=== PATIENT | female | born 1985 | race African-American/Black ===

== ENCOUNTER 2017-09-04 22:32 | Emergency (ER) | payer OTHER, MEDICAID ==
[2017-09-04 22:38] VITALS: RESP 16
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
[2017-09-05 03:34] VITALS: BP 116/72; PULSE 74; TEMP 98.1; O2SAT 97
== END 2017-09-05 03:35 | disposition home or self-care (01) ==
DX: S16.9XXA Unspecified injury of muscle, fascia and tendon at neck level, initial encounter (principal); V87.7XXA Person injured in collision between other specified motor vehicles (traffic), initial encounter; Y93.89 Activity, other specified
CPT/HCPCS: L0174

== ENCOUNTER 2018-05-12 04:31 | Emergency (ER) | payer MEDICAID ==
[2018-05-12] MEDS ORDERED: LIDOCAINE HCL 4% TOPICAL SOLN 50ML ONE (04:44)
--- NOTE | 2018-05-12 04:54 | EDPHY ---
H & P Stated Complaint: R EAR PAIN, AFTER CLEANING IT Time Seen by Provider: 05/12/18 04:35 HPI/ROS: Chief Complaint: Right ear pain HPI: 32-year-old woman presenting complaining of right ear pain. She states she has had pain for the last couple days. She has been itching her ears with Q -tips. She did get a cotton stocking her ear yesterday was seen at [facility] and had removed. Her ear was itching again today so she put in another Q -tips agent. The cotton came off again. She has had increasing pain. No fevers or chills. ROS: 10 point Review of Systems is negative except as noted in the HPI. Social History: No smoking, no alcohol, no recreational drug use Family History: non-contributory Physical Exam: General: Awake, alert, no acute distress HEENT: Right ear: There is cotton stuck deep with inner ear canal. Once this is removed there is moderate amount of erythema and exudate in her ear canal. The TM appears normal. Left ear normal Skin: No rash - Personal History LMP (Females 10-55): Over 28 Days Ago Current Tetanus Diphtheria and Acellular Pertussis (TDAP): Yes Tetanus Vaccine Date: <10YRS - Medical/Surgical History Hx Asthma: No Hx Chronic Respiratory Disease: No Hx Diabetes: No Hx Cardiac Disease: No Hx Renal Disease: No Hx Cirrhosis: No Hx Alcoholism: No Hx HIV/AIDS: No Hx Splenectomy or Spleen Trauma: No Other PMH: Csec - Social History Smoking Status: Never smoked Constitutional: Initial Vital Signs Temperature (C) 36.7 C 05/12/18 04:33 Heart Rate 80 05/12/18 04:33 Respiratory Rate 16 05/12/18 04:33 Blood Pressure 106/80 05/12/18 04:33 O2 Sat (%) 98 05/12/18 04:33 O2 Delivery Mode Room Air Allergies/Adverse Reactions: grape Allergy (Verified 05/05/18 17:12) Home Medications: Medication Instructions Recorded NK [No Known Home Meds] 05/05/18 Medical Decision Making Procedures: Procedure: Foreign body removal from right ear. Anesthesia: None required After verbal consent was obtained, the caught in was removed from right ear canal. The foreign body was removed manually with forceps under direct visualization. There were no complications. The procedure was performed by myself. ED Course/Re-evaluation: 32-year-old woman with a mild early otitis externa secondary to multiple caught in walks being stuck in her ear. Will start her on topical antibiotic solution , follow up with primary care. I have counseled her to not put any objects in her ears in the future. - Data Points Medications Given: Discontinued Medications Ciprofloxacin/Hydrocortisone (Cipro Hc) 3 drops RTEAR EDNOW ONE Stop: 05/12/18 05:16 Last Admin: 05/12/18 05:31 Dose: 3 drops Departure - Departure Disposition: Home, Routine, Self-Care Clinical Impression: Otitis externa, Foreign body in ear Condition: Good Instructions: Otitis Externa (ED), Ear Foreign Body (ED) Additional Instructions: Please do not put any objects in your ear. The only thing you should put in your ear are liquids. Administer 3 drops of the ear drops into you're right ear twice a day for 7 days. Follow up with primary care physician in 3-4 days for further evaluation. Referrals: Elvia Amador MD [Primary Care Provider] - As per Instructions
[2018-05-12] MEDS ORDERED: CIPROFLOXACIN HC 10 ML OTIC DROPS RTEAR ONE (05:15)
[2018-05-12 05:30] VITALS: BP 111/84
[2018-05-12] MEDS ORDERED: CIPROFLOXACIN HC 10 ML OTIC DROPS RTEAR SCH (09:00)
== END 2018-05-12 05:33 | disposition home or self-care (01) ==
PROC: 09C0XZZ Extirpation of Matter from Right External Ear, External Approach (ICD-10-PCS; principal; 2018-05-12)
DX: T16.2XXA Foreign body in left ear, initial encounter (principal)

== ENCOUNTER 2018-06-29 16:18 | Emergency (ER) | payer OTHER, MEDICAID ==
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
[2018-06-29] MEDS ORDERED: ACETAMINOPHEN 325 MG TAB PO ONE (17:06)
[2018-06-29 19:12] VITALS: BP 90/61
== END 2018-06-29 19:12 | disposition home or self-care (01) ==
DX: M54.5 Low back pain (principal); M54.2 Cervicalgia; Z3A.16 16 weeks gestation of pregnancy; V43.52XA Car driver injured in collision with other type car in traffic accident, initial encounter; Y92.410 Unspecified street and highway as the place of occurrence of the external cause

== ENCOUNTER 2018-07-14 04:24 | Emergency (ER) | payer OTHER, MEDICAID ==
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
[2018-07-14 06:16] VITALS: BP 107/71
== END 2018-07-14 06:14 | disposition home or self-care (01) ==
DX: O9A.212 Injury, poisoning and certain other consequences of external causes complicating pregnancy, second trimester (principal); S16.1XXA Strain of muscle, fascia and tendon at neck level, initial encounter; V43.62XA Car passenger injured in collision with other type car in traffic accident, initial encounter; Y92.410 Unspecified street and highway as the place of occurrence of the external cause; Z3A.21 21 weeks gestation of pregnancy

== ENCOUNTER 2018-10-23 13:40 | Observation (INO) | payer MEDICAID ==
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
[2018-10-23 14:19] LABS: PLATELET COUNT 239 10^3/uL (150-400)
[2018-10-23] MEDS ORDERED: oxyCODONE IR 5 MG TAB PO ONE (14:30)
[2018-10-23] MEDS ORDERED: ONDANSETRON DISINTEGRATING 4 MG TAB PO ONE (14:38)
[2018-10-23] MEDS ORDERED: ONDANSETRON DISINTEGRATING 4 MG TAB ONE (14:43)
== END 2018-10-23 17:15 | disposition home or self-care (01) ==
LOC: FLD 13:40
PROVIDERS: ADMIT Obstetrics & Gynecology; ATTEND Obstetrics & Gynecology
DX: O26.893 Other specified pregnancy related conditions, third trimester (principal); R51 Headache; Z3A.00 Weeks of gestation of pregnancy not specified
CPT/HCPCS: 59025; G0378

== ENCOUNTER 2019-03-03 22:25 | Emergency (ER) | payer MEDICAID | END 2019-03-03 23:08 | disposition home or self-care (01) ==